=== PATIENT | male | born 1945 ===

== ENCOUNTER 2017-02-20 06:56 | Day surgery (SDC) | payer OTHER ==
[2017-02-20] MEDS ORDERED: Lidocaine 2% Inj (20ml) ONE (07:04)
[2017-02-20] MEDS ORDERED: Phenylephrine 10 mg/ml Inj ONE (07:04)
[2017-02-20] MEDS ORDERED: Adenosine 90 mg/30mL IV ONE (07:05)
[2017-02-20] MEDS ORDERED: Iodixanol 320 MG/ML 100 ML BOTTLE IV ONE (07:05)
[2017-02-20] MEDS ORDERED: Nitroglycerin 50mg in D5W 0 MG/0 ML BOTTLE IV ONE (07:05)
[2017-02-20] MEDS ORDERED: Midazolam 2 MG/2 ML VIAL ONE (07:05)
[2017-02-20] MEDS ORDERED: Iodixanol 320 MG/ML 200 ML BOTTLE IV ONE (07:05)
[2017-02-20] MEDS ORDERED: Iohexol 350mgl/ml 50 ML ONE (07:05)
[2017-02-20 07:45] VITALS: BMI 38.5
--- NOTE | 2017-02-20 08:17 | CT ---
PROCEDURE: CT HEAD WITHOUT CONTRAST. HISTORY: ams COMPARISON: None available. TECHNIQUE: Axial computed tomography images were obtained through the head/brain without intravenous contrast. Radiation dose: Total exam DLP = 1356 mGy-cm. This CT exam was performed using one or more of the following dose reduction techniques: Automated exposure control, adjustment of the mA and/or kV according to patient size, and/or use of iterative reconstruction technique. FINDINGS: HEMORRHAGE: No intracranial hemorrhage. BRAIN: No mass effect or edema. Chronic microvascular changes are seen in the periventricular white matter. There is mild atrophy. VENTRICLES: Unremarkable. No hydrocephalus. CALVARIUM: Unremarkable. PARANASAL SINUSES: Unremarkable as visualized. No significant inflammatory changes. MASTOID AIR CELLS: Unremarkable as visualized. No inflammatory changes. OTHER FINDINGS: Vascular calcifications are seen IMPRESSION: No acute intracranial findings
[2017-02-20 08:56] VITALS: TEMP 98
--- NOTE | 2017-02-20 09:53 | CP.PCM.CON ---
Addendum entered and electronically signed by Veena Rowe DO 02/20/17 10: 00: Head CT noted to be negative for acute intracranial findings. 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 Patient was at [facility] and was noted to have NSTEMI. He was transferred to [place] for Cardiac Cath by Dr. Toure. Prior to the cath, patient was noted to have R sided facial droop and L upper extremity weakness. The Cardiac cath was cancelled. As per , patient usually walks at home with walker, but he seems more weak today. Patient denies CP, SOB, n/v/d, numbness/tingling, fever/chills , vision changes, or headache. PMH: HTN, DM, multiple CVA, CKD, osteomyelitis PSH: Denies Home meds: As per MAR All: NKDA SH: Denies EtOH, tobacco or drug use Review of Systems - Review of Systems Review of Systems: + Weakness Past Patient History - Infectious Disease Hx of Infectious Diseases: None - Past Medical History & Family History Past Medical History?: Yes - Past Social History Smoking Status: Never Smoked Alcohol: None Drugs: Denies Home Situation {Lives}: With Family - CARDIAC Hx Hypertension: Yes - PULMONARY Hx Respiratory Disorders: No - NEUROLOGICAL HX Cerebrovascular Accident: Yes (x3) - HEENT Hx HEENT Problems: Yes Hx Cataracts: Yes (BILAT) - RENAL Hx Chronic Kidney Disease: No - ENDOCRINE/METABOLIC Hx Diabetes Mellitus Type 2: Yes - HEMATOLOGICAL/ONCOLOGICAL Hx Blood Disorders: No - INTEGUMENTARY Hx Dermatological Problems: No - MUSCULOSKELETAL/RHEUMATOLOGICAL Hx Arthritis: Yes - GASTROINTESTINAL Hx Gastrointestinal Disorders: No - GENITOURINARY/GYNECOLOGICAL Hx Genitourinary Disorders: Yes Hx Prostate Cancer: Yes (per md) - PSYCHIATRIC Hx Substance Use: No - SURGICAL HISTORY Hx Surgeries: Yes Hx Cataract Extraction: Yes (bilat) Other/Comment: I/D RECTAL ABSCESS X 2 - ANESTHESIA Hx Anesthesia: Yes Hx Anesthesia Reactions: No Hx Malignant Hyperthermia: No Meds Allergies/Adverse Reactions: Allergies Allergy/AdvReac Type Severity Reaction Status Date / Time No Known Allergies Allergy Verified 02/12/17 06:57 Physical Exam - Head Exam Head Exam: ATRAUMATIC, NORMAL INSPECTION, NORMOCEPHALIC - Eye Exam Eye Exam: Normal appearance, PERRL Pupil Exam: NORMAL ACCOMODATION, PERRL - ENT Exam ENT Exam: Mucous Membranes Moist - Respiratory Exam Respiratory Exam: Clear to Auscultation Bilateral, NORMAL BREATHING PATTERN. absent: Rales, Rhonchi, Wheezes - Cardiovascular Exam Cardiovascular Exam: REGULAR RHYTHM, +S1, +S2. absent: Gallop, Rubs, Systolic Murmur - Extremities Exam Extremities exam: Positive for: pedal edema (+ 1). Negative for: calf tenderness Additional comments: R foot in boot with dressing in place. 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 Patient was at [facility] and was noted to have NSTEMI. Cath was cancelled due to weakness noted on physical exam. Patient noted to be hypertensive overnight with elevated diastolic. Patient most likely had CVA due to atherosclerosis and risk factors. Plan: - Patient is stable to be transferred to [facility] - Upon transfer, patient will follow up with on-call neurologist for further evaluation and treatment - Discussed plan with Dr. Toure as well as [facility] immigration case manager. Case seen, discussed and reviewed with attending, Dr. Storm. Andrew Rowe PGY2 - Date & Time Date: 02/20/17 Time: 10:00 <Corby Storm - Last Filed: 02/20/17 14:09> Results - Vital Signs Recent Vital Signs: Last Vital Signs Temp 98 F 02/20/17 08:55 Pulse 80 02/20/17 09:40 Resp 25 H 02/20/17 09:40 BP 179/86 H 02/20/17 09:00 Pulse Ox 100 02/20/17 09:40 Attending/Attestation - Attestation I have personally seen and examined this patient.: Yes I have fully participated in the care of the patient.: Yes I have reviewed all pertinent clinical information: Yes
[2017-02-20 10:36] VITALS: BP 179/86; PULSE 80; RESP 25; O2SAT 100
== END 2017-02-20 10:35 | disposition short-term general hospital (02) ==
LOC: CATH 06:56 → CCU 08:32 → CATH 10:35
PROVIDERS: ATTEND Internal Medicine Interventional Cardiology
DX: I21.4 Non-ST elevation (NSTEMI) myocardial infarction (principal); R29.810 Facial weakness; I10 Essential (primary) hypertension; E11.9 Type 2 diabetes mellitus without complications; I70.90 Unspecified atherosclerosis; Z53.09 Procedure and treatment not carried out because of other contraindication
CPT/HCPCS: 70450; 87081; J0153; J1644

== ENCOUNTER 2017-02-25 11:35 | Day surgery (SDC) | payer OTHER, MEDICARE ==
[2017-02-25] MEDS ORDERED: Iodixanol 320 MG/ML 200 ML BOTTLE IV ONE (14:58)
[2017-02-25] MEDS ORDERED: Lidocaine 2% Inj (20ml) ONE (15:01)
[2017-02-25] MEDS ORDERED: Midazolam 2 MG/2 ML VIAL ONE (15:02)
[2017-02-25] MEDS ORDERED: Iodixanol 320 MG/ML 100 ML BOTTLE IV ONE (15:59)
[2017-02-25] MEDS ORDERED: Iohexol 350mgl/ml 50 ML ONE (15:59)
[2017-02-25] MEDS ORDERED: Sodium Chloride 0.9% 1,000 ML IV SCH (16:45)
[2017-02-25 20:45] VITALS: RESP 20
[2017-02-25 23:09] VITALS: BP 150/90; PULSE 93; TEMP 98
--- NOTE | 2017-03-21 08:32 | PROCN ---
DATE: 02/25/2017 INDICATIONS: The patient is a 71-year-old male who was admitted for nonhealing ulcer of the right toe and was scheduled to undergo surgery by Podiatry. The patient postoperatively went into acute pulmonary failure requiring intubation and then subsequently extubated. During that episode, the patient had elevated cardiac enzymes and had non-ST elevation DC. He also had developed acute renal failure for which he was optimized and then was subsequently transferred to [facility] for further evaluation and treatment. PROCEDURE PERFORMED: Left heart catheterization with selective left and right coronary angiogram, left ventriculogram, PTCA and stenting of mid left anterior descending artery with use of drug-eluting stent, 6-Bur[place]ian right femoral arterial access, Mynx closure device for hemostasis. TECHNIQUES FOR PROCEDURE: After obtaining informed consent, the patient was brought to the cardiac lab from [facility]. Using modified Seldinger technique, 6-Burundian sheath was introduced into right femoral artery. Subsequently, JL4 and JR4 diagnostic catheters were used to engage the left and right coronary systems. Subsequently over J-wire, a pigtail catheter was advanced through the LV and LV gram was obtained in the IZAGUIRRE view. HEMODYNAMIC FINDINGS: Left ventricular end-diastolic pressure was 22 mmHg. There was no gradient noted upon the aortic valve pullback. There was no AI, no MR. Left ventricular ejection fraction estimated to be 45% to 50%. CORONARY ANATOMY: Left main, large size vessel, bifurcates into left anterior descending and left circumflex coronary artery. Distal left main has 40% stenosis. Left anterior descending artery is a large size vessel, has a proximal 70% and mid 99% stenosis, gives off 2 medium-sized diagonal branches. Left circumflex runs in the AV groove, has a proximal 50% stenosis, gives off OM1 branch which has a subtotal occlusion. The distal circumflex has 40% to 50% stenosis. Right coronary artery is a large-sized vessel which gives rise PDA and PLV branches. INTERVENTION: After reviewing the above angiographic findings, it was deemed imperative to fix the mid LAD 99% stenosis using EBU 3.5 guiding catheter, Prowater wire was used to negotiate through the lesion. The lesion was predilated and subsequently stented with a drug-eluting stent with lesion reduction down to 0% and TIMI3 flow. Final angiogram showed lesion reduction with good TIMI3 flow. IMPRESSION: Successful revascularization of proximal and mid left anterior descending with long drug-eluting stent. RECOMMENDATIONS: Continue the patient on dual anti-platelet therapy for 1 year and guideline-directed therapy for CAD. Nazario Toure MD
== END 2017-02-25 23:14 | disposition short-term general hospital (02) ==
LOC: CATH 11:35 → 2RSO 17:05 → CATH 23:14
PROVIDERS: ATTEND Internal Medicine Interventional Cardiology
DX: I21.4 Non-ST elevation (NSTEMI) myocardial infarction (principal); M86.171 Other acute osteomyelitis, right ankle and foot; E11.69 Type 2 diabetes mellitus with other specified complication; I10 Essential (primary) hypertension; E78.5 Hyperlipidemia, unspecified; E11.621 Type 2 diabetes mellitus with foot ulcer; L97.519 Non-pressure chronic ulcer of other part of right foot with unspecified severity; Z86.73 Personal history of transient ischemic attack (TIA), and cerebral infarction without residual deficits
CPT/HCPCS: 85175; 93454; 99152; 99153; C1725; C1760; C1769 ×4; C1874; C1887; C2629; C9600; J1644 ×2; J2250; J3010; J7040 ×2; Q9967 ×2